=== PATIENT | male | born 1980 | race Caucasian/White ===

== ENCOUNTER 2019-06-29 14:06 | Emergency (ER) | payer OTHER ==
[~2019-06-29] VITALS: Ht 175.3 cm; Wt 77.1 kg
[2019-06-29 14:12] VITALS: BP_SYST 155
--- NOTE | 2019-06-29 14:12 | NUR ---
Patient to ER bed 6 to gown for evaluation. Side rails up.
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
--- NOTE | 2019-06-29 14:20 | NUR ---
ER Dr. Messina at bedside examining patient.
[2019-06-29 15:30] VITALS: BP_SYST 149
--- NOTE | 2019-06-29 15:30 | NUR ---
Patient given written and verbal discharge instructions and verbalizes understanding. ER MD discussed with patient the results and treatment provided. Patient in stable condition. ID arm band removed. Rx of Tramodol & Augmentin given. Patient educated on pain management and to follow up with PMD. Pain Scale 5/10 tolerable for patient. Opportunity for questions provided and answered. Medication side effect fact sheet provided.
== END 2019-06-29 15:30 | disposition home or self-care (01) ==
LOC: SED 14:06
DX: S00.511A Abrasion of lip, initial encounter (principal); F17.200 Nicotine dependence, unspecified, uncomplicated; R03.0 Elevated blood-pressure reading, without diagnosis of hypertension; Z71.6 Tobacco abuse counseling; Y04.0XXA Assault by unarmed brawl or fight, initial encounter; Y93.89 Activity, other specified; Y92.89 Other specified places as the place of occurrence of the external cause; Y99.8 Other external cause status
CPT/HCPCS: 99283